=== PATIENT | male | born 1995 | race Caucasian/White ===

== ENCOUNTER 2019-09-20 15:26 | Emergency (ER) | payer OTHER ==
[2019-09-20] MEDS: Sodium Chloride 0.9% 1,000 ML IV ONE ×3 (15:53→18:15)
[2019-09-20] MEDS ORDERED: Azithromycin 500 MG in Sodium Chloride 0.9% 250 ML IV SCH (16:00)
[2019-09-20] MEDS: cefTRIAXone 1 GM in Premix Bag 1 BAG IV ONE (16:04)
[2019-09-20] MEDS: Ondansetron 4 MG/2 ML SDV IVPUSH ONE (16:04)
--- NOTE | 2019-09-20 16:13 | EDM.PDOC ---
ED HPI GENERAL MEDICAL PROBLEM - General Chief Complaint: Respiratory Problem Stated Complaint: COUGH, FEVER Time Seen by Provider: 09/20/19 16:10 Source of Information: Reports: Patient History Limitations: Reports: No Limitations - History of Present Illness INITIAL COMMENTS - FREE TEXT/NARRATIVE: Patient is a 24 old male no significant past medical history presenting with a chief complaint of cough, fever, vomiting. Patient was sent from the primary care clinic for concerns about continued vomiting. Patient states that the coughing started 2 to 3 days ago. His cough is productive of yellow sputum. Patient reports associated shortness of breath, fever and body aches. Today he started vomiting. He had 8 or 9 episodes. Nothing makes symptoms better or worse. Patient denies any diarrhea. Patient's only travels to [place] and [place]. Patient has no known sick contacts. Pmhx: None Pshx: None Family Hx: noncontributory Smoking history? no Etoh use? none Drug use? none In addition to that documented in the HPI above, the additional ROS was obtained : Constitutional: Per HPI Eyes: Denies vision changes ENMT: Denies sore throat CV: Denies chest pain Resp: Per HPI GI: Denies vomiting or diarrhea : Denies painful urination MSK: Denies recent trauma Skin: Denies new rashes Neuro: Denies new numbness or tingling or weakness Endocrine: Denies unexpected weight loss Heme: Denies bleeding disorders I have reviewed the triage vital signs Const: Well nourished, well developed, appears stated age Eyes: PERRL, no conjunctival injection HENT: NCAT, Neck supple without meningismus CV: RRR, Warm, well-perfused extremities RESP: CTAB, Unlabored respiratory effort GI: soft, non-tender, non-distended, no masses MSK: No gross deformities appreciated Skin: Warm, dry. No rashes Neuro: Alert, warehouse technician II-XII grossly intact. Sensation and motor function of extremities grossly intact. Psych: Appropriate mood and affect Assessment and plan: Patient 24-year-old male presenting with cough fever vomiting. Patient has evidence of a right lower lobe pneumonia. Patient saturating well on room air and not hypoxic nor is she short of breath. Patient was persistently tachycardic likely secondary to dehydration. Patient given IV fluids. Patient started on antibiotics for community-acquired pneumonia as he has no high risk features. Patient was signed out to overnight attending pending completion of IV fluids and resolution of tachycardia. Antibiotics sent to the patient's pharmacy. generalized Pain Score (Numeric/FACES): 5 - Related Data Allergies Allergy/AdvReac Type Severity Reaction Status Date / Time No Known Allergies Allergy Verified 09/20/19 15:37 Home Meds: Home Meds Amoxicillin 500 mg PO TID #21 tab 09/20/19 [Rx] Azithromycin [Zithromax] 250 mg PO DAILY #3 tablet 09/20/19 [Rx] Ondansetron [Zofran ODT] 4 mg PO Q6H PRN #16 tab.dis 09/20/19 [Rx] Past Medical History Respiratory History: Reports: Sleep Apnea - Infectious Disease History Infectious Disease History: Reports: Chicken Pox - Past Surgical History Musculoskeletal Surgical History: Reports: Carpal Tunnel Social & Family History - Tobacco Use Smoking Status *Q: Never Smoker - Recreational Drug Use Recreational Drug Use: No ED ROS GENERAL - Review of Systems Review Of Systems: See Below ED EXAM, GENERAL - Physical Exam Exam: See Below Course - Vital Signs Last Recorded V/S: Last Vital Signs Temp 38.2 C H 09/20/19 18:52 Pulse 110 H 09/20/19 19:36 Resp 16 09/20/19 19:36 BP 116/74 09/20/19 18:52 Pulse Ox 93 L 09/20/19 19:36 - Orders/Labs/Meds Labs: Laboratory Tests 09/20/19 09/20/19 09/20/19 Range/Units 15:49 15:49 15:49 WBC 10.49 (4.0-11.0) K/uL RBC 5.62 (4.50-5.90) M/uL Hgb 17.0 (13.0-17.0) g/dL Hct 49.3 (38.0-50.0) % MCV 87.7 (80.0-98.0) fL MCH 30.2 (27.0-32.0) pg MCHC 34.5 (31.0-37.0) g/dL RDW Std Deviation 39.0 (28.0-62.0) fl RDW Coeff of Chiki 12 (11.0-15.0) % Plt Count 199 (150-400) K/uL MPV 10.20 (7.40-12.00) fL Neut % (Auto) 89.4 H (48.0-80.0) % Lymph % (Auto) 5.9 L (16.0-40.0) % [place] % (Auto) 4.5 (0.0-15.0) % Eos % (Auto) 0.0 (0.0-7.0) % Baso % (Auto) 0.2 (0.0-1.5) % Neut # (Auto) 9.4 H (1.4-5.7) K/uL Lymph # (Auto) 0.6 (0.6-2.4) K/uL [place] # (Auto) 0.5 (0.0-0.8) K/uL Eos # (Auto) 0.0 (0.0-0.7) K/uL Baso # (Auto) 0.0 (0.0-0.1) K/uL Nucleated RBC % 0.0 /100WBC Nucleated RBCs # 0 K/uL Lactate (0.20-2.00) mmol/L Sodium 140 (136-148) mmol/L Potassium 4.3 (3.5-5.1) mmol/L Chloride 102 (98-107) mmol/L Carbon Dioxide 24.9 (21.0-32.0) mmol/L BUN 13 (7.0-18.0) mg/dL Creatinine 1.2 (0.8-1.3) mg/dL Est Cr Clr Drug Dosing 116.54 mL/min Estimated GFR (MDRD) > 60.0 ml/min Glucose 104 (74-106) mg/dL Calcium 9.5 (8.5-10.1) mg/dL Total Bilirubin 2.1 H (0.2-1.0) mg/dL AST 29 (15-37) IU/L ALT 68 H (14-63) IU/L Alkaline Phosphatase 79 (46-116) U/L Troponin I < 0.050 (0.000-0.056) ng/mL Total Protein 8.0 (6.4-8.2) g/dL Albumin 4.1 (3.4-5.0) g/dL Globulin 3.9 (2.6-4.0) g/dL Albumin/Globulin Ratio 1.1 (0.9-1.6) /26/20 Range/Units 16:35 WBC (4.0-11.0) K/uL RBC (4.50-5.90) M/uL Hgb (13.0-17.0) g/dL Hct (38.0-50.0) % MCV (80.0-98.0) fL MCH (27.0-32.0) pg MCHC (31.0-37.0) g/dL RDW Std Deviation (28.0-62.0) fl RDW Coeff of Chiki (11.0-15.0) % Plt Count (150-400) K/uL MPV (7.40-12.00) fL Neut % (Auto) (48.0-80.0) % Lymph % (Auto) (16.0-40.0) % [place] % (Auto) (0.0-15.0) % Eos % (Auto) (0.0-7.0) % Baso % (Auto) (0.0-1.5) % Neut # (Auto) (1.4-5.7) K/uL Lymph # (Auto) (0.6-2.4) K/uL [place] # (Auto) (0.0-0.8) K/uL Eos # (Auto) (0.0-0.7) K/uL Baso # (Auto) (0.0-0.1) K/uL Nucleated RBC % /100WBC Nucleated RBCs # K/uL Lactate 1.8 (0.20-2.00) mmol/L Sodium (136-148) mmol/L Potassium (3.5-5.1) mmol/L Chloride (98-107) mmol/L Carbon Dioxide (21.0-32.0) mmol/L BUN (7.0-18.0) mg/dL Creatinine (0.8-1.3) mg/dL Est Cr Clr Drug Dosing mL/min Estimated GFR (MDRD) ml/min Glucose (74-106) mg/dL Calcium (8.5-10.1) mg/dL Total Bilirubin (0.2-1.0) mg/dL AST (15-37) IU/L ALT (14-63) IU/L Alkaline Phosphatase (46-116) U/L Troponin I (0.000-0.056) ng/mL Total Protein (6.4-8.2) g/dL Albumin (3.4-5.0) g/dL Globulin (2.6-4.0) g/dL Albumin/Globulin Ratio (0.9-1.6) Meds: Medications Discontinued Medications Generic Name Dose Route Start Last Admin Trade Name Frediq PRN Reason Stop Dose Admin Acetaminophen 650 mg 09/20/19 17:10 09/20/19 17:23 Tylenol PO 09/20/19 17:11 650 mg NOW ONE Administration Azithromycin 500 mg 09/20/19 16:17 09/20/19 17:01 Zithromax PO 09/20/19 16:18 500 mg NOW STA Administration Sodium Chloride 1,000 mls @ 999 mls/hr 09/20/19 15:52 09/20/19 15:53 Normal Saline IV 09/20/19 16:52 999 mls/hr .Bolus ONE Administration Azithromycin 500 mg/ Sodium 250 mls @ 250 mls/hr 09/20/19 16:00 Chloride IV ONETIME LIZ Ceftriaxone Sodium/Dextrose 1 50 mls @ 100 mls/hr 09/20/19 15:53 09/20/19 16: 04 gm/ Premix IV 09/20/19 16:22 100 mls/hr ONETIME ONE Administration Sodium Chloride 1,000 mls @ 999 mls/hr 09/20/19 17:00 09/20/19 17:01 Normal Saline IV 09/20/19 18:00 999 mls/hr .Bolus ONE Administration Sodium Chloride 1,000 mls @ 1,000 mls/hr 09/20/19 18:01 09/20/19 18:15 Normal Saline IV 09/20/19 19:00 1,000 mls/hr .Bolus ONE Administration Ketorolac Tromethamine 15 mg 09/20/19 18:18 09/20/19 18:51 Toradol IVPUSH 09/20/19 18:19 15 mg ONETIME ONE Administration Metoclopramide HCl 5 mg 09/20/19 19:11 09/20/19 20:38 Reglan IVPUSH 09/20/19 19:12 Not Given ONETIME ONE Ondansetron HCl 4 mg 09/20/19 15:54 09/20/19 16:04 Zofran IVPUSH 09/20/19 15:55 4 mg ONETIME ONE Administration Departure - Departure Time of Disposition: 20:00 Disposition: Home, Self-Care 01 Clinical Impression: Pneumonia - Discharge Information Prescriptions: Amoxicillin 500 mg PO TID #21 tab Azithromycin [Zithromax] 250 mg PO DAILY #3 tablet Ondansetron [Zofran ODT] 4 mg PO Q6H PRN #16 tab.dis PRN Reason: Nausea/Vomiting Instructions: Upper Respiratory Infection, Adult, [id number] Referrals: PCP,Unobtain [Primary Care Provider] - Forms: ED Department Discharge Additional Instructions: The following information is given to patients seen in the emergency department who are being discharged to home. This information is to outline your options for follow-up care. We provide all patients seen in our emergency department with a follow-up referral. The need for follow-up, as well as the timing and circumstances, are variable depending upon the specifics of your emergency department visit. If you don't have a primary care physician on staff, we will provide you with a referral. We always advise you to contact your personal physician following an emergency department visit to inform them of the circumstance of the visit and for follow-up with them and/or the need for any referrals to a consulting specialist. The emergency department will also refer you to a specialist when appropriate. This referral assures that you have the opportunity for follow-up care with a specialist. All of these measure are taken in an effort to provide you with optimal care, which includes your follow-up. Under all circumstances we always encourage you to contact your private physician who remains a resource for coordinating your care. When calling for follow-up care, please make the office aware that this follow-up is from your recent emergency room visit. If for any reason you are refused follow-up, please contact the [facility] Emergency Department at and asked to speak to the emergency department charge nurse. [facility] [address] [place] [id number] [address] Sepsis Event Note - Evaluation Sepsis Screening Result: Possible Sepsis Risk - Focused Exam Date Exam was Performed: 09/22/19 Time Exam was Performed: 04:25
[2019-09-20 16:43] LABS: CARBON DIOXIDE,CO2 24.9 mmol/L (21.0-32.0); CHLORIDE,CL 102 mmol/L (98-107); POTASSIUM,K 4.3 mmol/L (3.5-5.1); SODIUM,NA 140 mmol/L (136-148)
[2019-09-20 16:53] LABS: GLUCOSE RANDOM 104 mg/dL (74-106)
[2019-09-20] MEDS: Azithromycin 250 MG Tab PO STA (17:01)
[2019-09-20 17:04] LABS: BLOOD UREA NITROGEN,BUN 13 mg/dL (7.0-18.0)
[2019-09-20] MEDS: Acetaminophen 325 MG Tab PO ONE (17:23)
[2019-09-20] MEDS: Ketorolac 30 MG/ML SDV IVPUSH ONE (18:51)
[2019-09-20] MEDS: Metoclopramide 10 MG/2 ML SDV IVPUSH ONE (20:38)
== END 2019-09-20 19:53 | disposition home or self-care (01) ==
LOC: MW.ED 15:26
DX: J18.9 Pneumonia, unspecified organism (principal)
CPT/HCPCS: 36415; 80053; 83605; 84484; 85025; 87040; 93005; 96361; 96365; 96375; 99284; A9270; J0696; J1885; J2405; J7030